=== PATIENT | male | born 1960 | race Two or more races ===

== ENCOUNTER 2021-06-10 11:57 | Emergency (ER) | payer OTHER, MEDICARE ==
[~2021-06-10] VITALS: Ht 165.1 cm; Wt 75.0 kg
[2021-06-10] MEDS ORDERED: fentaNYL PF VIAL 100 MCG/2 ML VIAL IVP ONE (12:15)
[2021-06-10] MEDS ORDERED: CONTRAST GIVEN. MC PRN (12:30)
[2021-06-10] MEDS ORDERED: IOHEXOL 300 MG/ML 100ML VIAL. IV ONE (12:30)
[2021-06-10 12:38] LABS: CALCIUM 8.8 mg/dL (8.5-10.1); CREATININE 0.9 mg/dL (0.7-1.3); GFR 86.4; POTASSIUM 4.1 mmol/L (3.5-5.1)
[2021-06-10 12:43] LABS: ALBUMIN 3.7 g/dL (3.4-5.0); ALBUMIN/GLOBULIN RATIO 1.2 (1.0-1.7); TOTAL BILIRUBIN 0.5 mg/dL (0.2-1.0); TOTAL PROTEIN 6.9 g/dL (6.4-8.2)
[2021-06-10] MEDS ORDERED: IV NORMAL SALINE 500ML BAG 500 ML IV ONE (12:45)
[2021-06-10 12:57] LABS: PROTHROMBIN TIME PATIENT 12.3 SEC (11.7-14.0)
[2021-06-10 13:07] LABS: BILIRUBIN,URINE NEGATIVE (NEG); CLARITY,URINE CLEAR; COLOR,URINE YELLOW; NITRITE,URINE NEGATIVE (NEG); PROTEIN,URINE NEGATIVE (NEG-TRACE)
[2021-06-10 13:17] LABS: BACTERIA,URINE 0 /HPF (0-FEW); RBC,URINE 0 /HPF (0-2); WBC,URINE 0 /HPF (0-4)
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
[2021-06-10 13:34] LABS: BASO % 1 % (0-3); EOS # 0.2 x10^3/uL (0.0-0.7); EOS % 3 % (0-3); HEMATOCRIT 42.9 % (39.0-53.0); HEMOGLOBIN 14.5 g/dL (13.0-17.5); LYMPH # 1.4 x10^3/uL (1.0-4.8); LYMPH % 23 % (24-48); MEAN CORPUSCULAR HEMOGLOBIN 31 pg (25-35); MEAN CORPUSCULAR HGB CONC 34 g/dL (31-37); MEAN CORPUSCULAR VOLUME 91 fL (79-100); MONO # 0.6 x10^3/uL (0.0-1.1); MONO % 10 % (0-9); NEUT # 3.9 x10^3/uL (1.8-7.7); NEUT % 63 % (31-73); PLATELET COUNT 280 x10^3/uL (140-400); RED CELL DISTRIBUTION WIDTH 13.3 % (11.5-14.5); WHITE BLOOD COUNT 6.1 x10^3/uL (4.0-11.0)
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
[2021-06-10 14:21] VITALS: BP 108/63
== END 2021-06-10 15:06 | disposition home or self-care (01) ==
LOC: ER 11:57
DX: M54.2 Cervicalgia (principal); M54.6 Pain in thoracic spine; R53.1 Weakness; Z87.891 Personal history of nicotine dependence; Z90.89 Acquired absence of other organs; Z90.49 Acquired absence of other specified parts of digestive tract; V49.49XA Driver injured in collision with other motor vehicles in traffic accident, initial encounter; Y93.89 Activity, other specified; Y92.488 Other paved roadways as the place of occurrence of the external cause; Y99.8 Other external cause status
CPT/HCPCS: 36415; 70450; 71260; 72125; 74177; 80053; 81001; 85025; 85610; 86850; 86900; 86901; 96361; 96374; 99285; J3010; J7040; Q9967